=== PATIENT | female | born 1960 | race Caucasian/White ===

== ENCOUNTER 2018-01-11 13:52 | Outpatient (CLI) | payer BC | END 2018-01-11 13:53 | disposition home or self-care (01) | LOC: BICMAMMO 13:52 | PROVIDERS: ATTEND Obstetrics & Gynecology | DX: Z12.31 Encounter for screening mammogram for malignant neoplasm of breast (principal) | CPT/HCPCS: 77063; 77067 ==

== ENCOUNTER 2018-09-17 13:56 | Emergency (ER) | payer BC, OTHER ==
--- NOTE | 2018-09-17 17:22 | RAD ---
CERVICAL SPINE FOUR VIEWS: 09/17/18 HISTORY: Fall. Neck injury. FINDINGS: vertebral body heights are maintained. Disc space narrowing and minimal degenerative retrolisthesis a t the C4-5 level. Postoperative disc replacement at the C6-7 level. Cervicothoracic junction is intac t. No acute fracture or dislocation are apparent. IMPRESSION: Postoperative and degenerative changes. No acute osseous abnormalities are demonstrated. POS: [facility]
== END 2018-09-17 15:59 | disposition home or self-care (01) ==
LOC: ERS 13:56
DX: M54.2 Cervicalgia (principal); W07.XXXA Fall from chair, initial encounter
CPT/HCPCS: 72040

== ENCOUNTER 2019-04-22 07:33 | Outpatient (CLI) | payer BC ==
--- NOTE | 2019-04-22 09:54 | MRI ---
MRI OF THE LEFT SHOULDER PERFORMED WITHOUT CONTRAST ENHANCEMENT: HISTORY: Left shoulder pain. FINDINGS: There is mild arthrosis of the AC joint. The infraspinatus tendon is intact. There is moderate tendinosis of the supraspinatus tendon with a low-grade undersurface tear of the anteriormost fibers. The tear involves the anteriormost fibers an d probably involves approximately 30% of the thickness of the tendon. There is undersurface retracti on of the articular-sided fibers by approximately 10 mm. The subscapularis tendon shows some tendinosis change and a low-grade undersurface tear. The biceps tendon is in normal position within the bicipital groove. There is tendinosis of the intraarticular portion of the biceps tendon. The superior labrum shows increased signal change consistent with degeneration, not a definite tear. There is a thickened appearance to the middle glenohumeral ligament. The anterior inferior labrum a ppears intact. The inferior glenohumeral ligament shows some increased signal change but appears int act. Articular cartilage is intact. IMPRESSION: 1. Lower grade more far anterior supraspinatus tendon tear involving approximately 30% of the unders urface of the far anterior fibers with articular fibers retracted by approximately 10 mm. 2. 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 POS: [facility]
== END 2019-04-22 07:34 | disposition home or self-care (01) ==
LOC: TBSIIMAG 07:33
PROVIDERS: ATTEND Family Medicine
DX: M25.512 Pain in left shoulder (principal); M25.312 Other instability, left shoulder; M89.8X1 Other specified disorders of bone, shoulder; G56.92 Unspecified mononeuropathy of left upper limb; S46.912A Strain of unspecified muscle, fascia and tendon at shoulder and upper arm level, left arm, initial encounter; M75.102 Unspecified rotator cuff tear or rupture of left shoulder, not specified as traumatic; M67.912 Unspecified disorder of synovium and tendon, left shoulder

== ENCOUNTER 2020-10-08 11:41 | Outpatient (CLI) | payer BC ==
--- NOTE | 2020-10-08 12:20 | RAD ---
XR Chest Pa Lat STANDARD History: Pneumonia Comparison: Radiograph 2014 Findings: Lungs are clear. No pneumothorax or effusion. Cardiac silhouette and mediastinal contours a re within normal limits. No acute osseous abnormality. Artificial disc at C6/C7. Impression: No acute intrathoracic abnormality.
== END 2020-10-08 11:42 | disposition home or self-care (01) ==
LOC: BICRAD 11:41
PROVIDERS: ATTEND Family Medicine
DX: Z86.19 Personal history of other infectious and parasitic diseases (principal); Z00.00 Encounter for general adult medical examination without abnormal findings
CPT/HCPCS: 71046; 80053; 80061; 81001; 82550; 82728; 83036; 83880; 85025; 86140